=== PATIENT | male | born 1990 | race Hispanic/Latino ===

== ENCOUNTER → 2025-03-24 | Outpatient (CLI) | payer OTHER ==
--- NOTE | 2025-03-24 23:55 | HMCSR ---
APPROVED REPORT EXAM: Two-dimensional and M-mode echocardiogram with Doppler and color Doppler. INDICATION ICD: Chest Pain 2D Dimensions RVDd 4.0 cm LVEF(%) 55.9 (>50%) LVED Vol(simp.) 99.2 mL IVSd 0.8 (0.7-1.1cm) FS(%) 29 % LVES Vol(simp.) 37.8 mL LVDd 5.1 (3.8-5.6cm) LA (2D) 3.9 (1.6-4.0cm) LVEF(%, simp.) 62 % PWd 1.0 (0.7-1.1cm) Ao Root(2D) 2.9 (2.0-3.7cm) LA ESV INDEX (BP) 23.55 mL/m2 LVDs 3.6 (2.5-4.0cm) LVOT diam 2.4 (1.8-2.4cm) IVC diam 2.0 cm M-Mode Dimensions EPSS 1.2 cm LA (MM) 3.7 (1.6-4.0cm) Ao Root(MM) 3.1 (2.0-3.7cm) Aortic Valve AoV Vmax 1.4 m/s Ao Peak GR 7.3 mmHg LVOT Vmax 1.0 m/s AoV VTI 0.3 m Ao Mean GR 4.2 mmHg LVOT VTI 0.20 m LUL (VMAX) 3.38 cm2 LUL (VTI) 3.2 cm2 Mitral Valve MV E Vmax 51.5 cm/s DECEL Time 155 ms MV A Vmax 46.9 cm/s P 1/2 T 53 ms E/A ratio 1.1 MVA (PHT) 4.2 cm2 TDI E/E' Medial 4.1 E/E' Lateral 4.1 Medial E' Peak V 12.64 cm/s Lateral E' Peak V 12.66 cm/s Pulmonary Valve PV Vmax 1.1 m/s PV VTI 0.21 m PV Mean GR 1.9 mmHg PV Peak GR 4.7 mmHg Tricuspid Valve TR Vmax 2.2 m/s RVSP 20.1 mmHg TR Peak GR 20.1 mmHg Left Ventricle The left ventricle is normal size. No regional wall motion abnormalities noted. There is normal left ventricular wall thickness. Left ventricular systolic function is normal, estimated LVEF is 55 to 60%. The left ventricular diastolic function is normal. Right Ventricle The right ventricle is normal size. The right ventricular systolic function is normal. Atria The left atrium size is normal. The right atrium size is normal. Aortic Valve The aortic valve is normal in structure. No aortic regurgitation is present. There is no aortic valvular stenosis. Mitral Valve The mitral valve is normal in structure. Trace mitral regurgitation. There is no mitral valve stenosis. Tricuspid Valve The tricuspid valve is normal in structure. Trace tricuspid regurgitation. RVSP is 20mmHg. Pulmonic Valve Pulmonic valve is not well visualized. Great Vessels The aortic root is normal in size. The IVC is normal in size and collapses >50% with inspiration. Pericardium There is no pericardial effusion. Conclusion The cardiac chambers are normal in size. There is normal left ventricular wall thickness. No regional wall motion abnormalities noted. Left ventricular systolic function is normal, estimated LVEF is 55 to 60%. The left ventricular diastolic function is normal. Trace mitral regurgitation. Trace tricuspid regurgitation. PASP is 23mmHg. There is no pericardial effusion.
== END | disposition home or self-care (01) ==
LOC: RAH 11:08
PROVIDERS: ATTEND Chiropractor
DX: R07.89 Other chest pain (principal); J45.998 Other asthma
CPT/HCPCS: 93306; 94060